=== PATIENT | male | born 1995 | race Caucasian/White ===

== ENCOUNTER → 2019-11-04 14:20 | Outpatient (BNVA) | payer OTHER, SELFPAY | PROVIDERS: Visit Provider Nurse Practitioner Family | DX: R50.9 Fever, unspecified (principal); R53.81 Other malaise; R53.83 Other fatigue; J98.8 Other specified respiratory disorders; Z11.59 Encounter for screening for other viral diseases; R43.2 Parageusia | CPT/HCPCS: 87635 ==